=== PATIENT | male | born 1950 | race Two or more races ===

== ENCOUNTER 2017-02-11 11:23 | Inpatient (IN) | payer MEDICARE ==
[~2017-02-11] VITALS: Ht 170.2 cm; Wt 43.2 kg
[2017-02-11 12:42] LABS: RAPID INFLUENZA A POSITIVE (Negative); RAPID INFLUENZA B Negative (Negative)
[2017-02-11 12:50] LABS: ASPARTATE AMINO TRANSFERASE 182 U/L (15-37); BLOOD UREA NITROGEN 10 mg/dL (7-18)
[2017-02-11 12:52] LABS: IS PT STATUS REG ER OR PRE ER? YES
[2017-02-11] MEDS ORDERED: CEFTRIAXONE PMX 1GM/50ML 50 ML IV ONE (13:00)
[2017-02-11] MEDS ORDERED: OSELTAMIVIR 75 MG CAPSULE PO ONE (13:00)
[2017-02-11] MEDS ORDERED: ASPIRIN 81 MG TABLET CHEW PO ONE (13:00)
[2017-02-11] MEDS ORDERED: AZITHROMYCIN 500 MG in SODIUM CHLORIDE 0.9% 250 ML IV ONE (13:00)
[2017-02-11] MEDS ORDERED: ASPIRIN 81 MG TABLET CHEW ONE (13:02)
[2017-02-11] MEDS ORDERED: CEFTRIAXONE PMX 1GM/50ML 50 ML ONE (13:02)
[2017-02-11] MEDS ORDERED: METF500T4 PO (14:13)
[2017-02-11] MEDS ORDERED: LISI-167 PO (14:13)
[2017-02-11] MEDS ORDERED: ASPI-515 PO (14:13)
[2017-02-11] MEDS ORDERED: ONDANSETRON 2MG/ML, 2ML IVP PRN (14:30)
[2017-02-11] MEDS ORDERED: ONDANSETRON ODT 4 MG PO PRN (14:30)
[2017-02-11] MEDS ORDERED: ACETAMINOPHEN 325 MG TABLET PO PRN (14:30)
[2017-02-11] MEDS: NICOTINE 14MG/24 HR PATCH.TD24 TD SCH (14:30)
[2017-02-11] MEDS ORDERED: SODIUM CHLORIDE 0.9% 1,000 ML IV SCH (15:00)
[2017-02-11] MEDS ORDERED: CEFTRIAXONE PMX 1GM/50ML 50 ML IV SCH (15:00)
[2017-02-11] MEDS ORDERED: AZITHROMYCIN 500 MG in SODIUM CHLORIDE 0.9% 250 ML IV SCH (15:00)
[2017-02-11 15:25] VITALS: BP 127/76
[2017-02-11] MEDS: INSULIN REGULAR 100 UNITS/ML, 3ML VIAL SQ-INSULIN SCH ×2 (16:00→21:00)
[2017-02-11 16:03] LABS: POTASSIUM,URINE RANDOM 37 mmol/L
[2017-02-11] MEDS: HEPARIN 5,000 UNITS/ML, 1ML SQ SCH (16:35)
[2017-02-11] MEDS: POTASSIUM CHLORIDE 20 MEQ TAB.ER.PRT PO SCH (17:11)
[2017-02-11 18:36] LABS: IS PT STATUS REG ER OR PRE ER? NO
[2017-02-11 19:01] VITALS: BP 109/64
[2017-02-11] MEDS: ASPIRIN 81 MG TABLET EC PO SCH (22:40)
[2017-02-11 23:24] VITALS: BP 112/69
[2017-02-12] MEDS: HEPARIN 5,000 UNITS/ML, 1ML SQ SCH ×3 (00:53→17:10)
[2017-02-12 01:35] LABS: IS PT STATUS REG ER OR PRE ER? NO
[2017-02-12 03:56] VITALS: BP 121/70
[2017-02-12 04:30] LABS: BLOOD UREA NITROGEN 8 mg/dL (7-18)
[2017-02-12 04:39] LABS: ASPARTATE AMINO TRANSFERASE 99 U/L (15-37)
[2017-02-12] MEDS: INSULIN REGULAR 100 UNITS/ML, 3ML VIAL SQ-INSULIN SCH ×4 (07:00→21:00)
[2017-02-12 07:17] VITALS: BP 132/81
[2017-02-12] MEDS: POTASSIUM CHLORIDE 20 MEQ TAB.ER.PRT PO SCH ×2 (09:29→17:06)
[2017-02-12] MEDS: SODIUM CHLORIDE 0.9% 1,000 ML IV SCH (09:30)
[2017-02-12] MEDS: CEFTRIAXONE PMX 1GM/50ML 50 ML IV SCH (12:59)
[2017-02-12 13:51] VITALS: BP 144/82
[2017-02-12] MEDS: AZITHROMYCIN 500 MG in SODIUM CHLORIDE 0.9% 250 ML IV SCH (14:35)
[2017-02-12] MEDS: NICOTINE 14MG/24 HR PATCH.TD24 TD SCH (14:38)
[2017-02-12 20:25] VITALS: BP 129/75
[2017-02-12] MEDS: ATORVASTATIN 10 MG TABLET PO SCH (21:12)
[2017-02-12] MEDS: ASPIRIN 81 MG TABLET EC PO SCH (21:12)
[2017-02-13 00:04] VITALS: BP 147/92
[2017-02-13] MEDS: HEPARIN 5,000 UNITS/ML, 1ML SQ SCH ×3 (01:00→17:00)
[2017-02-13 05:05] LABS: ASPARTATE AMINO TRANSFERASE 46 U/L (15-37); BLOOD UREA NITROGEN 8 mg/dL (7-18)
[2017-02-13] MEDS: INSULIN REGULAR 100 UNITS/ML, 3ML VIAL SQ-INSULIN SCH ×4 (07:00→21:00)
[2017-02-13 07:53] VITALS: BP 138/67
[2017-02-13] MEDS: POTASSIUM CHLORIDE 20 MEQ TAB.ER.PRT PO SCH (08:24)
[2017-02-13] MEDS: SODIUM CHLORIDE 0.9% 1,000 ML IV SCH (11:00)
[2017-02-13 12:54] VITALS: BP 143/89
[2017-02-13] MEDS: AZITHROMYCIN 500 MG in SODIUM CHLORIDE 0.9% 250 ML IV SCH (14:11)
[2017-02-13] MEDS: CEFTRIAXONE PMX 1GM/50ML 50 ML IV SCH (17:03)
[2017-02-13 18:27] VITALS: BP 125/78
[2017-02-13] MEDS: METOPROLOL TARTRATE 25 MG TABLET PO SCH (18:43)
[2017-02-13] MEDS: NICOTINE 14MG/24 HR PATCH.TD24 TD SCH (18:43)
[2017-02-13] MEDS: ATORVASTATIN 10 MG TABLET PO SCH (20:59)
[2017-02-13] MEDS: ASPIRIN 81 MG TABLET EC PO SCH (20:59)
[2017-02-13 23:51] VITALS: BP 128/86
[2017-02-14] MEDS: HEPARIN 5,000 UNITS/ML, 1ML SQ SCH ×4 (00:28→23:30)
[2017-02-14 04:08] VITALS: BP 136/82
[2017-02-14 06:02] LABS: BLOOD UREA NITROGEN 6 mg/dL (7-18)
[2017-02-14] MEDS: METOPROLOL TARTRATE 25 MG TABLET PO SCH ×2 (06:15→18:06)
[2017-02-14] MEDS: SODIUM CHLORIDE 0.9% 1,000 ML IV SCH (06:16)
[2017-02-14 06:27] VITALS: BP 133/80
[2017-02-14] MEDS: INSULIN REGULAR 100 UNITS/ML, 3ML VIAL SQ-INSULIN SCH ×4 (07:00→20:17)
[2017-02-14] MEDS ORDERED: REGADENOSON 0.4 MG/5 ML SYRINGE ONE (11:31)
[2017-02-14] MEDS: AZITHROMYCIN 500 MG in SODIUM CHLORIDE 0.9% 250 ML IV SCH (14:03)
[2017-02-14] MEDS: CEFTRIAXONE PMX 1GM/50ML 50 ML IV SCH (16:06)
[2017-02-14] MEDS: NICOTINE 14MG/24 HR PATCH.TD24 TD SCH (18:06)
[2017-02-14 20:14] VITALS: BP 146/81
[2017-02-14] MEDS: ATORVASTATIN 10 MG TABLET PO SCH (20:17)
[2017-02-14] MEDS: ASPIRIN 81 MG TABLET EC PO SCH (20:17)
[2017-02-15] MEDS: SODIUM CHLORIDE 0.9% 1,000 ML IV SCH ×2 (01:11→21:16)
[2017-02-15 01:35] VITALS: BP 132/80
[2017-02-15] MEDS: METOPROLOL TARTRATE 25 MG TABLET PO SCH ×2 (05:07→17:28)
[2017-02-15 05:52] LABS: ASPARTATE AMINO TRANSFERASE 48 U/L (15-37); BLOOD UREA NITROGEN 11 mg/dL (7-18)
[2017-02-15 06:15] LABS: DIFF TOTAL CELLS COUNTED 100 CELL DIFF
[2017-02-15 06:16] LABS: VERIFY COUNTS? YES
[2017-02-15 06:55] VITALS: BP 122/78
[2017-02-15] MEDS: HEPARIN 5,000 UNITS/ML, 1ML SQ SCH ×2 (09:50→17:28)
[2017-02-15] MEDS: INSULIN REGULAR 100 UNITS/ML, 3ML VIAL SQ-INSULIN SCH ×4 (09:55→21:00)
[2017-02-15] MEDS: LISINOPRIL 5 MG TABLET PO SCH (09:56)
[2017-02-15] MEDS: CLOPIDOGREL 75 MG TABLET PO SCH (09:56)
[2017-02-15] MEDS: AZITHROMYCIN 500 MG in SODIUM CHLORIDE 0.9% 250 ML IV SCH (14:34)
[2017-02-15 15:55] VITALS: BP 133/86
[2017-02-15] MEDS: CEFTRIAXONE PMX 1GM/50ML 50 ML IV SCH (17:28)
[2017-02-15] MEDS: NICOTINE 14MG/24 HR PATCH.TD24 TD SCH (17:28)
[2017-02-15 20:21] VITALS: BP 129/80
[2017-02-15] MEDS: ASPIRIN 81 MG TABLET EC PO SCH (21:16)
[2017-02-15] MEDS: ATORVASTATIN 10 MG TABLET PO SCH (21:16)
[2017-02-16] MEDS: HEPARIN 5,000 UNITS/ML, 1ML SQ SCH ×2 (01:00→08:41)
[2017-02-16 02:52] VITALS: BP 138/79
[2017-02-16] MEDS: METOPROLOL TARTRATE 25 MG TABLET PO SCH (04:57)
[2017-02-16 05:57] LABS: ASPARTATE AMINO TRANSFERASE 44 U/L (15-37); BLOOD UREA NITROGEN 8 mg/dL (7-18)
[2017-02-16 06:52] VITALS: BP 153/89
[2017-02-16 08:06] LABS: DIFF TOTAL CELLS COUNTED 100 CELL DIFF
[2017-02-16 08:07] LABS: VERIFY COUNTS? YES
[2017-02-16] MEDS: INSULIN REGULAR 100 UNITS/ML, 3ML VIAL SQ-INSULIN SCH ×2 (08:40→13:15)
[2017-02-16] MEDS: CLOPIDOGREL 75 MG TABLET PO SCH (08:41)
[2017-02-16] MEDS: LISINOPRIL 5 MG TABLET PO SCH (08:42)
[2017-02-16] MEDS ORDERED: CEFD300C37 PO (13:48)
[2017-02-16] MEDS ORDERED: METO25TA35 PO (13:48)
[2017-02-16] MEDS ORDERED: ATOR10TA9 PO (13:48)
[2017-02-16] MEDS ORDERED: LISI5TAB7 PO (13:48)
[2017-02-16] MEDS ORDERED: CLOP75TA PO (13:48)
[2017-02-16 15:28] VITALS: BP 128/74
== END 2017-02-16 17:32 | disposition home or self-care (01) | DRG 871 ==
LOC: ED 13:21 → EDIP 13:23 → 5SO 15:16
PROVIDERS: ADMIT Family Medicine; ATTEND Family Medicine
DX: A41.9 Sepsis, unspecified organism (principal); J96.01 Acute respiratory failure with hypoxia; E43 Unspecified severe protein-calorie malnutrition; G93.41 Metabolic encephalopathy; I21.4 Non-ST elevation (NSTEMI) myocardial infarction; J18.9 Pneumonia, unspecified organism; I63.9 Cerebral infarction, unspecified; J09.X1 Influenza due to identified novel influenza A virus with pneumonia; E87.1 Hypo-osmolality and hyponatremia; E87.2 Acidosis; Z68.1 Body mass index [BMI] 19.9 or less, adult; J09.X2 Influenza due to identified novel influenza A virus with other respiratory manifestations; E87.6 Hypokalemia; E03.9 Hypothyroidism, unspecified; E05.90 Thyrotoxicosis, unspecified without thyrotoxic crisis or storm; E11.9 Type 2 diabetes mellitus without complications; F17.210 Nicotine dependence, cigarettes, uncomplicated; I10 Essential (primary) hypertension; Z79.82 Long term (current) use of aspirin; Z79.84 Long term (current) use of oral hypoglycemic drugs; Z86.73 Personal history of transient ischemic attack (TIA), and cerebral infarction without residual deficits
CPT/HCPCS: 36415; 70450; 71010; 78452; 80048; 80053; 80061; 81001; 82436; 82962; 83036; 83605; 83735; 83935; 84100; 84133; 84145; 84295; 84300; 84439; 84443; 84484; 85025; 85610; 85730; 87040; 87400; 93005; 93017; 93306; 96365; 96367; J0456; J0696; J1644; J2785; A9502; C9898; J7030; J7050

== ENCOUNTER 2017-05-08 08:56 | Inpatient (IN) | payer MEDICARE ==
[~2017-05-08] VITALS: Ht 170.2 cm; Wt 54.6 kg
[~2017-05-08 08:56] MED LIST: ASPI-515 PO; ATOR10TA9 PO; CEFD300C37 PO; CLOP75TA PO; LISI-167 PO; LISI5TAB7 PO; METF500T4 PO; METO25TA35 PO
[2017-05-08] MEDS ORDERED: SODIUM CHLORIDE 0.9% 1,000 ML IV SCH (09:22)
[2017-05-08] MEDS ORDERED: BISACODYL 10 MG SUPP PR PRN (09:30)
[2017-05-08] MEDS ORDERED: ONDANSETRON 2MG/ML, 2ML IVPush PRN (09:30)
[2017-05-08] MEDS ORDERED: ASPIRIN 325 MG TABLET EC PO ONE (09:30)
[2017-05-08] MEDS ORDERED: BISACODYL 5 MG EC TABLET PO PRN (09:30)
[2017-05-08] MEDS ORDERED: ACETAMINOPHEN 325 MG TABLET PO PRN (09:30)
[2017-05-08] MEDS ORDERED: LISI2.5T PO (09:44)
[2017-05-08] MEDS ORDERED: MULT-717 PO (09:44)
[2017-05-08] MEDS ORDERED: PLEASE ENTER HEIGHT AND WEIGHT MC SCH (10:00)
[2017-05-08 10:40] LABS: BLOOD UREA NITROGEN 9 mg/dL (7-18)
[2017-05-08] MEDS ORDERED: FENTANYL PF 100 MCG/2ML ONE ×2 (11:20→12:16)
[2017-05-08] MEDS ORDERED: MIDAZOLAM 1 MG/ML, 5ML ONE ×2 (11:20→12:16)
[2017-05-08] MEDS ORDERED: LIDOCAINE 2%, 20ML ONE (11:20)
[2017-05-08] MEDS ORDERED: BIVALIRUDIN 250 MG ONE (12:15)
[2017-05-08] MEDS ORDERED: PRASUGREL 10 MG TABLET ONE (12:15)
[2017-05-08] MEDS ORDERED: NITROGLYCERIN 5 MG/ML, 10ML ONE (12:15)
[2017-05-08] MEDS ORDERED: BIVALIRUDIN 250 MG in DEXTROSE 5% 50 ML IV SCH (13:13)
[2017-05-08] MEDS ORDERED: LABETALOL 5MG/ML, 20ML ONE (13:53)
[2017-05-08] MEDS ORDERED: LABETALOL 5MG/ML, 20ML IVPush ONE (14:00)
[2017-05-08] MEDS: LISINOPRIL 5 MG TABLET PO SCH (15:39)
[2017-05-08] MEDS ORDERED: ENALAPRILAT 1.25 MG/ML, 2ML IV PRN (16:00)
[2017-05-08 19:18] VITALS: BP 85/45
[2017-05-08 19:35] LABS: IS PT STATUS REG ER OR PRE ER? NO
[2017-05-08 19:45] VITALS: BP 92/53
[2017-05-08] MEDS: MULTIVITAMINS/MINERALS TABLET PO SCH (19:51)
[2017-05-08] MEDS ORDERED: ASPIRIN 325 MG TABLET EC ONE (19:53)
[2017-05-08 20:00] VITALS: BP 102/58
[2017-05-08] MEDS ORDERED: ZOLPIDEM 5MG TABLET PO PRN ×2 (21:00)
[2017-05-09 02:00] VITALS: BP 119/65
[2017-05-09 06:03] LABS: BLOOD UREA NITROGEN 19 mg/dL (7-18)
[2017-05-09 07:56] VITALS: BP 110/68
[2017-05-09] MEDS: MULTIVITAMINS/MINERALS TABLET PO SCH (07:58)
[2017-05-09] MEDS: LISINOPRIL 5 MG TABLET PO SCH (07:59)
[2017-05-09] MEDS ORDERED: PRAS10TA4 PO (08:42)
[2017-05-09] MEDS ORDERED: ATOR10TA9 PO (08:42)
[2017-05-09] MEDS ORDERED: PRASUGREL 10 MG TABLET PO SCH (09:00)
[2017-05-09] MEDS ORDERED: ASPIRIN 81 MG TABLET EC PO SCH (09:00)
[2017-05-10] MEDS ORDERED: metFORMIN 500 MG TABLET PO SCH (17:00)
== END 2017-05-09 10:20 | disposition home or self-care (01) | DRG 247 ==
LOC: CACL 08:56 → 5SO 15:46 → CACL 23:40 → 5SO 23:40 → OBSVTOIN 23:46 → DCLOUNGE 05-09 09:45
PROVIDERS: ADMIT Internal Medicine Cardiovascular Disease; ATTEND Internal Medicine Cardiovascular Disease
PROC: 027034Z Dilation of Coronary Artery, One Artery with Drug-eluting Intraluminal Device, Percutaneous Approach (ICD-10-PCS; principal; 2017-05-08)
PROC: 4A023N7 Measurement of Cardiac Sampling and Pressure, Left Heart, Percutaneous Approach (ICD-10-PCS; 2017-05-08)
PROC: B2111ZZ Fluoroscopy of Multiple Coronary Arteries using Low Osmolar Contrast (ICD-10-PCS; 2017-05-08)
DX: I25.110 Atherosclerotic heart disease of native coronary artery with unstable angina pectoris (principal); E87.1 Hypo-osmolality and hyponatremia; E44.0 Moderate protein-calorie malnutrition; I10 Essential (primary) hypertension; E11.9 Type 2 diabetes mellitus without complications; E78.5 Hyperlipidemia, unspecified; Z87.01 Personal history of pneumonia (recurrent); Z95.5 Presence of coronary angioplasty implant and graft; I25.2 Old myocardial infarction
CPT/HCPCS: 36415; 80048; 82040; 84484; 85014; 85018; 85025; 85610; 85730; 93005; 93458; 99156; 99157; C1760; C1894; C9600; J0583; J2250; J3010; J3490; C1725; C1769; C1874; C1887; G0378; Q9967

== ENCOUNTER 2017-12-18 13:11 | Emergency (ER) | payer MEDICARE, MEDICAID ==
[~2017-12-18] VITALS: Ht 170.2 cm; Wt 56.0 kg
[~2017-12-18 13:11] MED LIST changes: +LISI2.5T PO; +MULT-717 PO; +PRAS10TA4 PO
[2017-12-18 13:19] VITALS: BP 136/82
[2017-12-18] MEDS ORDERED: PHENYLEPHRINE NASAL 1%, 15ML SPRAY ONE (14:04)
[2017-12-18] MEDS ORDERED: BACITRACIN ZINC OINT 500U/GM, 0.9 GM ONE (14:05)
[2017-12-18] MEDS ORDERED: METO50TA82 PO (14:09)
[2017-12-18] MEDS ORDERED: FLUT1AER INH (14:09)
== END 2017-12-18 15:16 | disposition home or self-care (01) ==
LOC: ED 15:12
DX: R04.0 Epistaxis (principal)
CPT/HCPCS: 30901; 99284

== ENCOUNTER 2017-12-23 20:45 | Emergency (ER) | payer MEDICARE ==
[~2017-12-23] VITALS: Ht 170.2 cm; Wt 57.2 kg
[~2017-12-23 20:45] MED LIST changes: +FLUT1AER INH; +METO50TA82 PO
[2017-12-23 20:47] VITALS: BP 126/73
[2017-12-23] MEDS ORDERED: BACITRACIN ZINC OINT 500U/GM, 0.9 GM ONE (23:17)
== END 2017-12-23 23:47 | disposition home or self-care (01) ==
LOC: ED 23:41
DX: R04.0 Epistaxis (principal); E11.9 Type 2 diabetes mellitus without complications; F17.200 Nicotine dependence, unspecified, uncomplicated; I25.2 Old myocardial infarction
CPT/HCPCS: 30901; 99284

== ENCOUNTER → 2018-11-25 | Outpatient (CLI) | payer MEDICARE, MEDICAID ==
[~2018-11-25] MED LIST changes: +METF500T17 PO; -METF500T4 PO
== END | disposition home or self-care (01) ==
LOC: CFH 15:10
PROVIDERS: ATTEND Internal Medicine Cardiovascular Disease
DX: I08.0 Rheumatic disorders of both mitral and aortic valves (principal); I25.10 Atherosclerotic heart disease of native coronary artery without angina pectoris; E11.9 Type 2 diabetes mellitus without complications; I10 Essential (primary) hypertension; E78.5 Hyperlipidemia, unspecified; Z72.0 Tobacco use; Z95.5 Presence of coronary angioplasty implant and graft
CPT/HCPCS: 93306

== ENCOUNTER → 2020-08-30 | Outpatient (CLI) | payer MEDICARE, MEDICAID | END | disposition home or self-care (01) | LOC: CFH 12:37 | PROVIDERS: ATTEND Internal Medicine Cardiovascular Disease | DX: I34.8 Other nonrheumatic mitral valve disorders (principal); E78.5 Hyperlipidemia, unspecified; I10 Essential (primary) hypertension | CPT/HCPCS: 93306 ==